=== PATIENT | female | born 1990 | race Caucasian/White ===

== ENCOUNTER 2017-07-06 18:32 | Emergency (ER) | payer MEDICAID ==
[~2017-07-06] VITALS: Ht 170.2 cm; Wt 128.4 kg
[2017-07-06 18:41] VITALS: Ht 170.2 cm; Wt 128.4 kg
[2017-07-06 19:54] VITALS: BP 135/72
== END 2017-07-06 19:54 | disposition short-term general hospital (02) ==
LOC: ED 18:32
DX: O26.893 Other specified pregnancy related conditions, third trimester (principal); R10.9 Unspecified abdominal pain; M54.5 Low back pain; M79.604 Pain in right leg; Z3A.38 38 weeks gestation of pregnancy; W01.0XXA Fall on same level from slipping, tripping and stumbling without subsequent striking against object, initial encounter; Y93.E1 Activity, personal bathing and showering; Y99.8 Other external cause status; Y92.89 Other specified places as the place of occurrence of the external cause
CPT/HCPCS: J7030